=== PATIENT | male | born 1965 | race African-American/Black ===

== ENCOUNTER 2017-10-30 12:55 | Emergency (ER) | payer SELFPAY ==
[~2017-10-30] VITALS: Ht 175.3 cm; Wt 72.6 kg
[2017-10-30 13:40] VITALS: BP 132/88
--- NOTE | 2017-10-30 14:06 | PHYS DOC ---
Adult General Chief Complaint Chief Complaint: KNEE INJURY HPI HPI Patient is a 52 year old male presents the ED for work note. States he was seen at [facility] after injuring his knee at work but did not get a work note. States he needs to have one for work. States he had a negative x-ray. Describes the pain as sharp. Rates pain as 6 out of 10. Patient able to ambulate without assistance. Denies chest pain, dizziness, shortness of breath, weakness, nausea/ vomiting, fever, headache or new injury. Review of Systems Review of Systems Constitutional: Denies fever or chills [] Eyes: Denies change in visual acuity, redness, or eye pain [] HENT: Denies nasal congestion or sore throat [] Respiratory: Denies cough or shortness of breath [] Cardiovascular: No additional information not addressed in HPI [] GI: Denies abdominal pain, nausea, vomiting, bloody stools or diarrhea [] : Denies dysuria or hematuria [] Musculoskeletal: Complains of left knee pain. Denies back pain. [] Integument: Denies rash or skin lesions [] Neurologic: Denies headache, focal weakness or sensory changes [] Endocrine: Denies polyuria or polydipsia [] All other systems were reviewed and found to be within normal limits, except as documented in this note. Allergies Allergies Allergies Coded Allergies Type Severity Reaction Last Updated Verified No Known Drug Allergies 10/30/17 No Physical Exam Physical Exam Constitutional: Well developed, well nourished, no acute distress, non-toxic appearance. [] HENT: Normocephalic, atraumatic, oropharynx moist. Skin: Warm, dry, no erythema, no rash. [] Back: No tenderness, no CVA tenderness. [] Extremities: MILD ANTERIOR KNEE TENDERNESS. NO OVERLYING SKIN CHANGES OR SWELLING. no cyanosis, no clubbing, ROM intact, no edema. [] Neurologic: Alert and oriented X 3, normal motor function, normal sensory function, no focal deficits noted. [] Psychologic: Affect normal, judgement normal, mood normal. [] Current Patient Data Vital Signs Vital Signs Date Time Temp Pulse Resp B/P (MAP) Pulse Ox O2 Delivery O2 Flow Rate FiO2 10/30/17 13:40 98.3 79 16 98 Room Air 98.3 EKG EKG [] Radiology/Procedures Radiology/Procedures [] Course & Med Decision Making Course & Med Decision Making Pertinent Labs and Imaging studies reviewed. (See chart for details) Will provide work note. Negative XR at [facility]. Patient able to ambulate without assistance. Discussed follow-up with orthopedics this week. Provided contact information/education. Discussed reasons to return to the ED. Patient understands and agrees with plan. Dragon Disclaimer Dragon Disclaimer This electronic medical record was generated, in whole or in part, using a voice recognition dictation system. Departure Departure Impression: Primary Impression: Knee pain Disposition: 01 HOME, SELF-CARE Condition: STABLE Referrals: BELLA GARCIA MD Patient Instructions: Knee Pain MANUELA AKHTAR Oct 30, 2017 14:06
== END 2017-10-30 14:25 | disposition home or self-care (01) ==
LOC: ER 12:55
DX: M25.562 Pain in left knee (principal)
CPT/HCPCS: 99282

== ENCOUNTER 2018-07-13 10:05 | Emergency (ER) | payer SELFPAY ==
[~2018-07-13] VITALS: Ht 175.3 cm; Wt 77.1 kg
--- NOTE | 2018-07-13 11:15 | RAD ---
LUMBAR SPINE 2-3V History: Lower back pain with numbness down right side, worsening pain the past week. Comparison: None. Findings: 3 views of the lumbar spine are submitted. Lumbar vertebral body stature is maintained. There is negligible anterior spondylolisthesis L5-S1. Intervertebral disc spaces are maintained. No acute osseous normality is identified by radiographs. Impression: 1. There is negligible anterior spondylolisthesis at L5-S1, no acute osseous abnormality identified by radiographs. Electronically signed by: Get Troncoso MD (07/13/2018 11:12 AM) [email or web address]
--- NOTE | 2018-07-13 11:16 | RAD ---
CERVICAL SPINE 2-3V History: Neck pain with numbness down right side, worsening pain the past week. Comparison: None. Findings: 3 views of the cervical spine are submitted. Cervical vertebral body stature and AP alignment are maintained. There is mild narrowing of the C5-C6 intervertebral disc space with spondylosis at the same level. There is adequate alignment of the lateral masses of C1 relative to C2. Atlantoaxial distance is within normal limits. No acute osseous abnormality is identified by radiographs. Impression: 1. No acute osseous abnormality is identified by radiographs. There is mild degenerative disease and spondylosis C5-6. Electronically signed by: Get Troncoso MD (07/13/2018 11:13 AM) [id number]
[2018-07-13 11:30] LABS: BILIRUBIN,URINE NEGATIVE (NEG); CLARITY,URINE CLEAR; COLOR,URINE YELLOW; NITRITE,URINE NEGATIVE (NEG); PH,URINE 7.5; PROTEIN,URINE NEGATIVE (NEG-TRACE)
[2018-07-13 11:31] LABS: AMPHETAMINE/METHAMPHETAMINE NEG (NEG); BARBITURATES NEG (NEG); BENZODIAZEPINES NEG (NEG); CANNABINOIDS POS (NEG); COCAINE NEG (NEG); METHADONE NEG (NEG); OPIATES NEG (NEG); PHENCYCLIDINE NEG (NEG)
[2018-07-13 11:47] LABS: BACTERIA,URINE 0 /HPF (0-FEW); RBC,URINE 0 /HPF (0-2); SQUAMOUS EPITHELIAL CELL,UR FEW /LPF; WBC,URINE OCC /HPF (0-4)
--- NOTE | 2018-07-13 11:51 | PHYS DOC ---
Past Medical History Additional Past Medical Histor: back pain Past Surgical History: No Surgical History Smoking: Cigarettes Alcohol Use: None Drug Use: None Adult General Chief Complaint Chief Complaint: LOWER BACK PAIN OR INJURY HPI HPI Patient is a 52 year old male who presents with complaining of back pain. Patient states he has had chronic back pain intermittently since childhood for the last 1 month he has constant lower back pain as a constant sharp pain without radiation. Patient complaining of increasing pain with movement and activity and denies paresthesia or weakness of lower extremity, fever and chills , urinary and bowel incontinence, back injury. Patient states he did not take prescribed or [id number] pain medication and did not seek medical attention for his pain and rated his pain 7 at rest and 10 with activity. Complaining of right upper extremity pain and numbness that getting worse with movement of his arm with radiation to his neck for one month. Patient states the pain and numbness getting force with movement of his neck. He denies weakness of his right upper extremity. Review of Systems Review of Systems Constitutional: Denies fever or chills [] Eyes: Denies change in visual acuity, redness, or eye pain [] HENT: Denies nasal congestion or sore throat [] Respiratory: Denies cough or shortness of breath [] Cardiovascular: No additional information not addressed in HPI [] GI: Denies abdominal pain, nausea, vomiting, bloody stools or diarrhea [] : Denies dysuria or hematuria [] Musculoskeletal: Reports back pain and joint pain Integument: Denies rash or skin lesions [] Neurologic: Denies headache, focal weakness, reports sensory changes [] Endocrine: Denies polyuria or polydipsia [] All other systems were reviewed and found to be within normal limits, except as documented in this note. Current Medications Current Medications Current Medications Medications (Trade) Dose Ordered Sig/[facility] Start Time Stop Time Status Last Admin Dose Admin Ketorolac Tromethamine (Toradol Im) 60 mg 1X ONCE 07/13/18 12:00 07/13/18 12:01 DC Allergies Allergies Allergies Coded Allergies Type Severity Reaction Last Updated Verified No Known Drug Allergies 10/30/17 No Physical Exam Physical Exam Constitutional: Well developed, well nourished, mild distress, non-toxic appearance. [] HENT: Normocephalic, atraumatic Eyes: PERRLA, EOMI, conjunctiva normal, no discharge. [] Neck: Normal range of motion, no tenderness, supple, no stridor. [] Cardiovascular:Heart rate regular rhythm, no murmur [] Lungs & Thorax: Bilateral breath sounds clear to auscultation [] Abdomen: Bowel sounds normal, soft, no tenderness, no masses, no pulsatile masses. [] Skin: Warm, dry, no erythema, no rash. [] Back: No midline tenderness, no CVA tenderness, painful range of motion. [] Extremities: No tenderness, no cyanosis, no clubbing, ROM intact, no edema, right upper extremity with subjective decrease of sensation Neurologic: Alert and oriented X 3, normal motor function, subjective paresthesia, no focal deficits noted. [] Psychologic: Affect normal, judgement normal, mood normal. [] Current Patient Data Vital Signs Vital Signs Date Time Temp Pulse Resp B/P (MAP) Pulse Ox O2 Delivery O2 Flow Rate FiO2 07/13/18 10:13 98.5 85 16 112/78 (89) 96 Room Air 98.5 Lab Values Laboratory Tests Test 07/13/18 11:08 Urine Collection Type Unknown Urine Color Yellow Urine Clarity Clear Urine pH 7.5 Urine Specific [place] 1.025 Urine Protein Negative mg/dL (NEG-TRACE) Urine Glucose (UA) Negative mg/dL (NEG) Urine Ketones (Stick) Negative mg/dL (NEG) Urine Blood Negative (NEG) Urine Nitrite Negative (NEG) Urine Bilirubin Negative (NEG) Urine Urobilinogen Dipstick 1.0 mg/dL (0.2 mg/dL) Urine Leukocyte Esterase Negative (NEG) Urine RBC 0 /HPF (0-2) Urine WBC Occ /HPF (0-4) Urine Squamous Epithelial Cells Few /LPF Urine Bacteria 0 /HPF (0-FEW) Urine Mucus Mod /LPF Urine Opiates Screen Neg (NEG) Urine Methadone Screen Neg (NEG) Urine Barbiturates Neg (NEG) Urine Phencyclidine Screen Neg (NEG) Urine Amphetamine/Methamphetamine Neg (NEG) Urine Benzodiazepines Screen Neg (NEG) Urine Cocaine Screen Neg (NEG) Urine Cannabinoids Screen Pos (NEG) Urine Ethyl Alcohol Neg (NEG) EKG EKG [] Radiology/Procedures Radiology/Procedures [][facility] [address] [place] [address] IMAGING REPORT Signed PATIENT: HERBERTH MCGOWAN ACCOUNT: [id number] : 1965 LOCATION: ER AGE: 52 SEX: M EXAM STATUS: REG ER ORD. PHYSICIAN: MERCEDES SAUNDERS MD REASON: low back pain PROCEDURE: CERVICAL SPINE 2-3V CERVICAL SPINE 2-3V History: Neck pain with numbness down right side, worsening pain the past week. Comparison: None. Findings: 3 views of the cervical spine are submitted. Cervical vertebral body stature and AP alignment are maintained. There is mild narrowing of the C5-C6 intervertebral disc space with spondylosis at the same level. There is adequate alignment of the lateral masses of C1 relative to C2. Atlantoaxial distance is within normal limits. No acute osseous abnormality is identified by radiographs. Impression: 1. No acute osseous abnormality is identified by radiographs. There is mild degenerative disease and spondylosis C5-6. Electronically signed by: Martha Stein MD (07/13/2018 11:13 AM) [email or web address] DICTATED and SIGNED BY: MARTHA STEIN MD DATE: 07/13/18 [facility] [address] [place], [place] [id number] IMAGING REPORT Signed PATIENT: HERBERTH MCGOWAN ACCOUNT: [id number] : 1965 LOCATION: ER AGE: 52 SEX: M EXAM STATUS: REG ER ORD. PHYSICIAN: MERCEDES SAUNDERS MD REASON: low back pain PROCEDURE: LUMBAR SPINE 2-3V LUMBAR SPINE 2-3V History: Lower back pain with numbness down right side, worsening pain the past week. Comparison: None. Findings: 3 views of the lumbar spine are submitted. Lumbar vertebral body stature is maintained. There is negligible anterior spondylolisthesis L5-S1. Intervertebral disc spaces are maintained. No acute osseous normality is identified by radiographs. Impression: 1. There is negligible anterior spondylolisthesis at L5-S1, no acute osseous abnormality identified by radiographs. Electronically signed by: Martha Stein MD (07/13/2018 11:12 AM) [facility] DICTATED and SIGNED BY: MARTHA STEIN MD DATE: 07/13/18 1111 Course & Med Decision Making Course & Med Decision Making Pertinent Labs and Imaging studies reviewed. (See chart for details) Evaluation of patient in ER showed 52-year-old male patient with complaining of low back pain and right arm pain and numbness for one month. Patient had unremarkable physical exam and x-ray except for arthritis. Patient instructed to follow up with his primary care physician regarding chronic back pain and treated with Toradol in ER. discharge: I've spoken with the patient and/or caregivers. I've explained the patient's condition, diagnosis and treatment plan based on information available to me at this time. I've answered the patient's and/or caregivers questions and addressed any concerns. The patient and/or caregivers have a good understanding the patient's diagnosis, condition and treatment plan as can be expected at this point. Vital signs have been stabilized. The patient's condition is stable for discharge from the emergency department. The patient will pursue further outpatient evaluation with her primary care provider or other designated consulting physician as outlined in the discharge instructions. Patient and/or caregivers are agreeable to this plan of care and follow-up instructions have been explained in detail. The patient and/or caregivers have received these instructions in written format and expressed understanding of these discharge instructions. The patient and her caregivers are aware that if any significant change in condition or worsening of symptoms should prompt him to immediately return to this of the closest emergency department. If an emergent department is not readily available I would encourage him to call 911. [] Dragon Disclaimer Dragon Disclaimer This electronic medical record was generated, in whole or in part, using a voice recognition dictation system. Departure Departure Impression: Primary Impression: Lumbosacral strain Additional Impressions: Cervical radiculopathy Marijuana abuse Tobacco abuse Tobacco abuse counseling Disposition: HOME, SELF-CARE (At 1207) Condition: STABLE Referrals: NO PCP (PCP) Patient Instructions: Cervical Radiculopathy, Lumbosacral Strain Additional Instructions: Apply ice on your back and neck Follow-up with your primary care physician in 3-5 days Return to ER if not getting better Scripts Methylprednisolone (MEDROL) 4 Mg Tab.ds.pk 1 PKG PO UD, #1 PKG Prov: MERCEDES SAUNDERS MD 07/13/18 Tramadol Hcl (ULTRAM) 50 Mg Tablet 50 MG PO Q6HRS PRN for PAIN, #14 TAB 0 Refills Prov: MERCEDES SAUNDERS MD 07/13/18 Cyclobenzaprine Hcl (CYCLOBENZAPRINE HCL) 10 Mg Tablet 1 TAB PO TID, #30 TAB Prov: MERCEDES SAUNDERS MD 07/13/18 Problem Qualifiers MERCEDES SAUNDERS MD Jul 13, 2018 11:51
[2018-07-13] MEDS ORDERED: KETOROLAC 60 MG/2 ML INJ. IM ONE (12:00)
[2018-07-13] MEDS ORDERED: CYCL10TA2 PO (12:09)
[2018-07-13] MEDS ORDERED: TRAM-48 PO (12:09)
[2018-07-13] MEDS ORDERED: METH4TAB2 PO (12:10)
[2018-07-13 12:12] VITALS: BP 110/59
== END 2018-07-13 12:29 | disposition home or self-care (01) ==
LOC: ER 10:05
DX: S39.012A Strain of muscle, fascia and tendon of lower back, initial encounter (principal); M54.12 Radiculopathy, cervical region; F12.10 Cannabis abuse, uncomplicated; Z72.0 Tobacco use; Z71.6 Tobacco abuse counseling; X58.XXXA Exposure to other specified factors, initial encounter; Y93.89 Activity, other specified; Y92.89 Other specified places as the place of occurrence of the external cause; Y99.8 Other external cause status
CPT/HCPCS: 72040; 72100; 80307; 81001; 96372; 99285; J1885; G0479

== ENCOUNTER 2021-08-19 15:06 | Emergency (ER) | payer SELFPAY ==
[~2021-08-19] VITALS: Ht 175.3 cm; Wt 79.0 kg
[~2021-08-19 15:06] MED LIST: CYCL10TA2 PO; METH4TAB2 PO; TRAM-48 PO
[2021-08-19] MEDS ORDERED: IV NORMAL SALINE 1000ML BAG 1,000 ML IV SCH (16:30)
[2021-08-19 17:03] LABS: BASO % 1 % (0-3); EOS % 0 % (0-3); HEMATOCRIT 54.2 % (39.0-53.0); HEMOGLOBIN 18.6 g/dL (13.0-17.5); LYMPH # 0.4 x10^3/uL (1.0-4.8); LYMPH % 5 % (24-48); MEAN CORPUSCULAR HEMOGLOBIN 33 pg (25-35); MEAN CORPUSCULAR HGB CONC 34 g/dL (31-37); MEAN CORPUSCULAR VOLUME 98 fL (79-100); MONO # 0.6 x10^3/uL (0.0-1.1); MONO % 10 % (0-9); NEUT # 5.8 x10^3/uL (1.8-7.7); NEUT % 85 % (31-73); PLATELET COUNT 137 x10^3/uL (140-400); RED BLOOD COUNT 5.56 x10^6/uL (4.30-5.70); RED CELL DISTRIBUTION WIDTH 16.1 % (11.5-14.5); WHITE BLOOD COUNT 6.8 x10^3/uL (4.0-11.0)
[2021-08-19 17:09] LABS: CALCIUM 9.1 mg/dL (8.5-10.1); CREATININE 2.1 mg/dL (0.7-1.3); GFR 39.7; POTASSIUM 4.9 mmol/L (3.5-5.1)
[2021-08-19 17:15] LABS: ALBUMIN 3.6 g/dL (3.4-5.0); DIRECT BILIRUBIN 0.2 mg/dL (0.0-0.2); TOTAL BILIRUBIN 0.6 mg/dL (0.2-1.0)
[2021-08-19 17:45] VITALS: BP 150/85
[2021-08-19] MEDS ORDERED: IV NORMAL SALINE 1000ML BAG 1,000 ML IV ONE (17:45)
--- NOTE | 2021-08-19 18:09 | EKG ---
[facility] [address] [place] [address] Test Date: 2021-08-19 Test Time: 16:15:44 Pat Name: HERBERTH MCGOWAN Department: Room: Gender: Bean Snapper: : 1965 Requested By: JOSE HARDING Order Number: [id number] Reading MD: Measurements Intervals [place] Rate: 99 P: 42 SC: 148 QRS: 51 QRSD: 72 T: 84 QT: 300 QTc: 390 Interpretive Statements SINUS RHYTHM LEFT ATRIAL ABNORMALITY ABNORMAL ECG RI6.02 No previous ECG available for comparison
--- NOTE | 2021-08-19 18:44 | PHYS DOC ---
Past Medical History Additional Past Medical Histor: back pain Past Surgical History: No Surgical History Smoking Status: Current Every Day Smoker Additional Information: 1 PPD Alcohol Use: Occasionally Drug Use: None General Adult EDM: Chief Complaint: DIARRHEA HPI: HPI: 55-year-old -[place] male with no significant past medical history, presents the ED with complaints of fever, loose watery diarrhea, body aches, cough and lack of taste or smell for the past week. Patient states his worst symptom is diarrhea that anytime he eats " it just runs out of me." Patient reports no routine primary care, takes no routine medications. Is a tobacco smoker. 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 States he has not a history of Covid and has not received the Covid vaccination. No recent antibiotics or hospitalizations. No history of foreign travel or GI illness including inflammatory bowel disease. No history of GI bleeding. No past surgical history. Review of Systems: Review of Systems: Constitutional: Denies fever or chills. [] Eyes: Denies change in visual acuity. [] HENT: Denies nasal congestion or sore throat. [] Respiratory: Denies cough or shortness of breath or hemoptysis Cardiovascular: Denies syncope or edema or chest pain GI: Denies melena, hematochezia, hematemesis or vomiting : Denies dysuria or hematuria Musculoskeletal: Denies back pain or joint pain or leg swelling Integument: Denies rash or diaphoresis Neurologic: Denies headache, focal weakness or sensory changes. [] Endocrine: Denies polyuria or polydipsia. [] Lymphatic: Denies swollen glands. [] Psychiatric: Denies depression or anxiety. [] Heart Score: C/O Chest Pain: No Risk Factors: Risk Factors: DM, Current or recent (<one month) smoker, HTN, HLP, family history of CAD, obesity. Risk Scores: Score 0 - 3: 2.5% MACE over next 6 weeks - Discharge Home Score 4 - 6: 20.3% MACE over next 6 weeks - Admit for Clinical Observation Score 7 - 10: 72.7% MACE over next 6 weeks - Early Invasive Strategies Current Medications: Current Medications Medications (Trade) Dose Ordered Sig/Miroslava Start Time Stop Time Status Last Admin Dose Admin Sodium Chloride 1,000 ml @ 1,000 mls/hr 1X ONCE 08/19/21 17:45 08/19/21 18:44 08/19/21 17:44 1,000 MLS/HR Allergies: Allergies: Allergies Coded Allergies Type Severity Reaction Last Updated Verified No Known Drug Allergies 10/30/17 No Physical Exam: PE: Constitutional: Well developed, well nourished, no acute distress, non-toxic appearance. HENT: Normocephalic, atraumatic, dry mucous membranes Eyes: EOMI, conjunctiva normal, no discharge. Neck: Normal range of motion, supple, Cardiovascular: S1/2 present, slightly tachycardic Lungs & Thorax: Speaking in full sentences, bilateral equal chest rise, no tachypnea or increased work of breathing Abdomen: soft, no tenderness, Skin: Warm, dry, no erythema, no rash. [] Back: No tenderness, no CVA tenderness. [] Extremities: No tenderness, no cyanosis, no lower extremity edema Neurologic: Alert and oriented X 3, normal motor function, normal sensory function, no focal deficits noted. [] Psychologic: Affect normal, judgement normal, mood normal. [] Current Patient Data: Labs: Laboratory Tests Test 08/19/21 16:23 08/19/21 16:55 SARS-CoV-2 Antigen (Rapid) Positive (NEGATIVE) *A White Blood Count 6.8 x10^3/uL (4.0-11.0) Red Blood Count 5.56 x10^6/uL (4.30-5.70) Hemoglobin 18.6 g/dL (13.0-17.5) H Hematocrit 54.2 % (39.0-53.0) H Mean Corpuscular Volume 98 fL (79-100) Mean Corpuscular Hemoglobin 33 pg (25-35) Mean Corpuscular Hemoglobin Concent 34 g/dL (31-37) Red Cell Distribution Width 16.1 % (11.5-14.5) H Platelet Count 137 x10^3/uL (140-400) L Neutrophils (%) (Auto) 85 % (31-73) H Lymphocytes (%) (Auto) 5 % (24-48) L Monocytes (%) (Auto) 10 % (0-9) H Eosinophils (%) (Auto) 0 % (0-3) Basophils (%) (Auto) 1 % (0-3) Neutrophils # (Auto) 5.8 x10^3/uL (1.8-7.7) Lymphocytes # (Auto) 0.4 x10^3/uL (1.0-4.8) L Monocytes # (Auto) 0.6 x10^3/uL (0.0-1.1) Eosinophils # (Auto) 0.0 x10^3/uL (0.0-0.7) Basophils # (Auto) 0.0 x10^3/uL (0.0-0.2) Sodium Level 131 mmol/L (136-145) L Potassium Level 4.9 mmol/L (3.5-5.1) Chloride Level 97 mmol/L (98-107) L Carbon Dioxide Level 23 mmol/L (21-32) Anion Gap 11 (6-14) Blood Urea Nitrogen 31 mg/dL (8-26) H Creatinine 2.1 mg/dL (0.7-1.3) H Estimated GFR (Cockcroft-Gault) 39.7 Glucose Level 99 mg/dL (70-99) Calcium Level 9.1 mg/dL (8.5-10.1) Total Bilirubin 0.6 mg/dL (0.2-1.0) Direct Bilirubin 0.2 mg/dL (0.0-0.2) Aspartate Amino Transferase (AST) 52 U/L (15-37) H Alanine Aminotransferase (ALT) 42 U/L (16-63) Alkaline Phosphatase 85 U/L (46-116) Creatine Kinase 530 U/L (39-308) H Troponin I Quantitative < 0.017 ng/mL (0.000-0.055) Total Protein 9.0 g/dL (6.4-8.2) H Albumin 3.6 g/dL (3.4-5.0) Lipase 158 U/L (73-393) Laboratory Tests 08/19/21 16:55 Laboratory Tests 08/19/21 16:55 Vital Signs: Vital Signs Date Time Temp Pulse Resp B/P (MAP) Pulse Ox O2 Delivery O2 Flow Rate FiO2 08/19/21 18:14 94 30 125/83 (97) 93 Room Air 08/19/21 16:09 99.4 99.4 EKG: EKG: [] Radiology/Procedures: Radiology/Procedures: [] Course & Med Decision Making: Course & Med Decision Making Pertinent Labs and Imaging studies reviewed. (See chart for details) COVID-19 CRITERIA: The patient was evaluated during the global COVID-19 pandemic, and that diagnosis was suspected/considered upon their initial presentation. Their evaluation, treatment and testing was consistent with current guidelines for patients who present with complaints or symptoms that may be related to COVID-19. Concern for COVID-19 infection with diarrhea, renal insufficiency and mildly elevated CK. Patient was treated with IV fluid bolus in the ED. Patient with no antiemetics. Is tolerating oral p.o. Patient afebrile. Patient has no shortness of breath, chest pain, abscess or leg swelling. I suspect tachycardia is related to dehydration. Will recommend supportive measures. Will discharge home with strict ED return precautions were given for chest pain, dyspnea, increased work of breathing or strokelike symptoms. Encouraged urgent outpatient follow-up with PMD and nephrology to reevaluate kidney function. Life- threatening processes were considered but are low suspicion at this time, given history, physical exam and ED workup. Pt was educated on all prescription medications and adverse effects. All patient's questions were answered and pt was stable at time of discharge. Life/limb-threatening differential includes but is not limited to, GI bleeding, toxigenic versus infectious diarrhea, shock, mesenteric ischemia, electrolyte abnormality, thyroid storm, toxidrome, antibiotic related, head trauma, syncope, malignancy, inflammatory bowel disease or surgical abdomen (appendicitis, perforated diverticulitis, bowel obstruction, Hirschsprung's, intussusception, etc). I have spoken with the patient and/or caregivers. I explained the patient's condition, diagnoses and treatment plan based on the information available to me at this time. I have answered the patient and/or caregiver's questions and addressed any concerns. The patient and/or caregivers have a good understanding of patient's diagnosis, condition and treatment plan as can be expected at this point. Vital signs have been stable. Patient's condition is stable and appropriate for discharge from the emergency department. Patient will pursue further outpatient evaluation with primary care physician or other designated or consulting physician as outlined in the discharge instructions. The patient and/or caregivers are agreeable to this plan of care and follow-up instructions have been explained in detail. The patient and/or caregivers have received these instructions in written form and have expressed an understanding of the discharge instructions. The patient and/or caregivers are aware that any significant change of condition or worsening of symptoms should prompt immediate return to this or the closest emergency department or call to 911. Mairaon Disclaimer: Theodore Disclaimer: This electronic medical record was generated, in whole or in part, using a voice recognition dictation system. Departure Departure Impression: Primary Impression: COVID-19 Additional Impression: Renal insufficiency Disposition: HOME / SELF CARE / HOMELESS Condition: STABLE Referrals: NO PCP (PCP) Follow-up with your primary care physician in 24 to 48 hours OR FOLLOW UP WITH FAMILY MEDICINE: [address] [facility], [address] [place] [address] Patient Instructions: Kidney Failure Additional Instructions: FOLLOW UP WITH NEPHROLOGY: FOR DEFINITIVE MANAGEMENT of renal disease, please reevaluate function within 1 week [facility] [place] [address] [place] [address] Return to ED immediately if your oxygen level drops below 90% (purchase a pulse oximetry at a medical supply store), difficulties breathing including rapid breathing or increased work of breathing (skin sucking under ribs), chest pain or stroke-like symptoms (facial droop, speech changes, arm/leg weakness). You have been tested for or diagnosed with COVID-19. It is an infection caused by a new type of coronavirus. COVID-19 will cause cold-like or mild flu symptoms in most. It can cause more severe symptoms like problems breathing in some. There is no treatment for COVID-19. The body will clear the infection over time. Self-care will help to ease discomfort. Steps to Take: Self-Care Rest as needed. Healthy habits may help you feel better. Steps include: Choose healthy foods including fruits and vegetables. Drink water throughout the day. Get plenty of sleep each night. If you smoke, try to quit. It may ease breathing. Avoid alcohol. Keep Others Healthy The virus can spread to others. Droplets are released every time you sneeze or cough. The droplets can get into the mouth, nose, or eyes of people near you and lead to infection. To lower the chances of spreading COVID-19 to others: Stay at home until your doctor has said it is safe to leave. If you tested positive this will mean staying isolated until both of the following are true: At least 7 days have passed since the start of illness. You are free of fever for at least 72 hours without the use of medicine. During this time: - Avoid public areas, events, or transportation. Do not return to work or school until your doctor has said it is safe to do so. - Call ahead if you need to go to a medical center. Let them know you may have COVID-19. It will help them guide you where to go. They may also ask you to wear a facemask when you come to the office. - If you call for emergency medical services, let them know you may have COVID- 19. While at home: - Try to avoid close contact with others. Stay about 6 feet away. - If possible, spend most of your time in a separate room from others. - Use a face mask if you will be in close contact with others such as sharing a room or vehicle. - Have someone wipe down common surfaces in the home. Use household vamp throater every day on areas like doorknobs, counters, or sinks. - Cough or sneeze into a tissue. Throw the tissue away right after use. If a tissue is not available, cough or sneeze into your elbow. - Wash your hands often. Wash them after sneezing or coughing. Use soap and water and wash for at least 20 seconds. Alcohol based hand drain cleaner can be used if soap and water is not available. - Do not prepare food for others. Avoid sharing personal items like forks, spoons, or toothbrushes. - Avoid close contact with pets while you are sick. There is no evidence of the virus passing to pets. This is a safety step until more is known about this virus. Isolation can be frustrating. Social interaction can help. Keep in touch with friends and family through phone and tech options. You can still interact with others in your home, just keep a safe distance of about 6 feet. Follow-up: Your doctors office will check in with you to see if there are any changes in your health. You may be asked to keep track of symptoms to share with them. They will also l et you know when you are clear to be in public again. Problems to Look Out For: Contact your doctor if your recovery is not going as you expect. Get emergency care if you have problems such as: - Trouble breathing - Nonstop chest pain or pressure - Changes in awareness, confusion, or problems waking - Lips or face have bluish color - Worsening of symptoms If you think you have an emergency, call for emergency medical services right away. [facility] Aug 19, 2021 18:44
== END 2021-08-19 19:04 | disposition home or self-care (01) ==
LOC: ER 15:06
DX: U07.1 COVID-19 (principal); N28.9 Disorder of kidney and ureter, unspecified; F17.200 Nicotine dependence, unspecified, uncomplicated
CPT/HCPCS: 36415; 80048; 80076; 82550; 83690; 84484; 85025; 87426; 93005; 96360; 96361; 99284; J7030